=== PATIENT | male | born 1950 | race Caucasian/White ===

== ENCOUNTER → 2017-01-24 | Outpatient (CLI) | payer MEDICARE, MEDICAID ==
[~2017-01-24] MED LIST: ACYCLOVIR PO; AMITRIPTYLINE H50 M1 PO; ASPIR-LOW81 MG PO; ASPIRIN 32325 MG/TAB PO; ELAVIL50 MG PO; FLONASE NASAL S16 GM NS; HCTZ PO; KALETRA PO; LIPITOR 10MG10 MG PO; LISINOPRIL PO; TRILIPIX45 MG PO; TRUVADA PO; VYTORIN PO; ZOVIRAX 200MG200 MG PO
== END ==
LOC: COL.RAD 09:45
DX: M50.31 Other cervical disc degeneration, high cervical region (principal); M25.78 Osteophyte, vertebrae; M79.601 Pain in right arm; M54.12 Radiculopathy, cervical region

== ENCOUNTER → 2017-01-26 | Outpatient (CLI) | payer MEDICARE | LOC: COL.RAD 10:14 | DX: K76.0 Fatty (change of) liver, not elsewhere classified (principal); B19.10 Unspecified viral hepatitis B without hepatic coma; K74.69 Other cirrhosis of liver ==

== ENCOUNTER → 2017-02-01 | Outpatient (CLI) | payer MEDICARE | LOC: COL.RAD 08:29 | DX: J98.6 Disorders of diaphragm (principal); R06.02 Shortness of breath ==

== ENCOUNTER → 2019-10-11 | Outpatient (CLI) | payer MEDICARE ==
[2019-10-11 11:21] LABS: CREATININE, serum 1.03 (0.66-1.25)
== END ==
LOC: COL.LAB 09:30
PROVIDERS: Internal Medicine
DX: Z01.812 Encounter for preprocedural laboratory examination (principal); M48.02 Spinal stenosis, cervical region

== ENCOUNTER → 2019-10-14 | Outpatient (CLI) | payer MEDICARE | LOC: COL.RAD 10:21 | DX: Z01.812 Encounter for preprocedural laboratory examination (principal); M48.02 Spinal stenosis, cervical region; M46.92 Unspecified inflammatory spondylopathy, cervical region; I65.23 Occlusion and stenosis of bilateral carotid arteries | CPT/HCPCS: Q9967 ==

== ENCOUNTER 2019-11-01 15:54 | Inpatient (IN) | payer MEDICARE ==
[~2019-11-01] VITALS: Ht 182.9 cm; Wt 124.0 kg
[~2019-11-01 15:54] MED LIST changes: -AMITRIPTYLINE H50 M1 PO; -ASPIRIN 32325 MG/TAB PO; +ASPIRIN 81M81 MG/TA2 PO; +ELAVIL100 MG PO; -ZOVIRAX 200MG200 MG PO; +ZOVIRAX400 MG PO
[2019-11-01 17:41] VITALS: BP 121/64; PULSE 131; TEMP 98
--- NOTE | 2019-11-01 17:43 | NUR ---
Report from Gilda at . Pt arrived via wheelchair by transport service, being settled into room by ZANDER Fish. Nurse introduced self to pt, pt is A&O, pleasant, NAD, has aspen collar to cervical spine intact, shoes in place, to chair.
[2019-11-01] MEDS ORDERED: NORCO 325 MG-51 TAB PO (17:53)
[2019-11-01] MEDS ORDERED: [UNRECOGNIZED DRUG - OTHER] MM (17:54)
[2019-11-01] MEDS ORDERED: ZANAFLEX2 MG PO (17:55)
[2019-11-01] MEDS ORDERED: BIKTARVY 50-201 EACH PO (17:59)
[2019-11-01] MEDS ORDERED: THE MEDICINE S200 M2 PO (17:59)
[2019-11-01] MEDS ORDERED: EPA FISH OIL1 SGL PO (18:00)
[2019-11-01] MEDS ORDERED: TRICOR 48MG48 MG PO (18:00)
[2019-11-01] MEDS ORDERED: FLONASE NASAL S16 GM NS (18:01)
[2019-11-01] MEDS ORDERED: GLUCOSAMINE & C1 CA2 PO (18:01)
[2019-11-01] MEDS ORDERED: NIZORAL SHAMPO120 M1 TP (18:02)
[2019-11-01] MEDS ORDERED: LYRICA 150MG C150 MG PO (18:03)
[2019-11-01] MEDS ORDERED: PRINIVIL40 MG PO (18:03)
[2019-11-01] MEDS ORDERED: PRILOSEC 20MG20 MG PO (18:04)
[2019-11-01] MEDS ORDERED: MEN'S ONE DAIL1 EACH PO (18:04)
[2019-11-01] MEDS ORDERED: UNIPHYL 400MG400 MG PO (18:05)
[2019-11-01] MEDS ORDERED: TRIAMCINOLONE A15 G3 TP (18:06)
[2019-11-01] MEDS ORDERED: CEPACOL SORE TH1 LO8 MM ×2 (18:30→19:37)
[2019-11-01] MEDS ORDERED: VITAMINE200 PO (18:31)
[2019-11-01] MEDS ORDERED: AMBIEN 5MG TABLE5 MG PO (18:32)
[2019-11-01] MEDS ORDERED: ERGOCALCIFER50000 IU PO (19:41)
--- NOTE | 2019-11-01 19:47 | NUR ---
Bedside report to VERONIKA Nascimento. Pt in chair with call lt in reach, aspen collar in place. Pt requests soft diet d/t difficulty with sore throat, changed order, ST notified, will see Monday.
--- NOTE | 2019-11-01 21:30 | NUR ---
Pt. sitting up in bed at this time. Pt. is A&OX3, assessment complete. Incision to rt. neck is well approximated, no dressing. Pt. wearing neck brace. Pt. denies pain or other needs, call light within reach.
[2019-11-02 05:28] VITALS: BP 109/58; PULSE 118; TEMP 97.8
[2019-11-02 08:00] VITALS: BP 115/59
--- NOTE | 2019-11-02 10:04 | NUR ---
Patient working with PT at this time.
--- NOTE | 2019-11-02 10:45 | NUR ---
Patient was in Physical Therapy.
[2019-11-02 16:35] VITALS: BP 114/57; PULSE 121; TEMP 98.9
--- NOTE | 2019-11-02 17:31 | NUR ---
This nurse assisted patient with using his electric razor this afternoon. His chin was getting irritated with his hair rubbing against his neck brace. Patient currently eating supper in his recliner, call light in reach and alarm is on. Denied pain at this time. He did have a headache earlier, but that has now subsided. Patient denied questions at this time.
--- NOTE | 2019-11-02 18:34 | NUR ---
Patient given a warm wash cloth to clean up prior to going to bed. He was a one assist with transferring to the bathroom with walker and gait belt. He was able to pull pants up and down and wipe self independently. Patient uses call light appropriatly. Reported off to night nurse.
--- NOTE | 2019-11-02 20:00 | NUR ---
Pt. sitting up in chair at this time. Pt. is A&OX3, assessment complete. Incision to rt. neck, well approximated. Pt. reports mild pain at a 4 on pain scale, will give pain meds per orders. Pt. assisted into bed at this time with walker and standby assist. Pt. denies further needs, call light within reach.
[2019-11-03 05:40] VITALS: BP 127/59; PULSE 104; TEMP 97.6
--- NOTE | 2019-11-03 05:42 | NUR ---
Pt. slept well through the night. Pt. remains A&OX3. Pt. denies pain or other needs, call light within reach.
--- NOTE | 2019-11-03 09:06 | NUR ---
Patient resting in recliner at this time, call light in reach and alarm is set. Patient was set up with eating, needing a straw to be able to drink his fluids while wearing his aspen collar. Denied pain at this time only aching that is tolerable. Reported sleeping very well last night. Requested Miralax this morning and was taken with his orance juice. Ate all his breakfast this morning and took his pills one at a time with water.
--- NOTE | 2019-11-03 12:40 | NUR ---
Patient watching television while sitting in recliner in his underwear. He did not want to get dressed this morning, waiting to take a shower this afternoon. Denies pain at this time, call light is within reach and his slip proof socks are on. Denies pain.
--- NOTE | 2019-11-03 14:51 | NUR ---
Patient was seen by dietary this afternoon. See new orders for snacks two times a day and specific breakfast per patient request. Saray notified kitchen of these new orders.
--- NOTE | 2019-11-03 14:53 | NUR ---
Patient took a shower this afternoon and was able to clean himself independently after he was set up by staff. Shaila neck collar was used when in the shower. He is currently resting in bed feet elevated and ice pack on right foot due to swelling and discomfort. Will continue to monitor.
[2019-11-03 16:19] VITALS: BP 148/75; PULSE 109; TEMP 97.7
--- NOTE | 2019-11-03 20:00 | NUR ---
PATIENT RESTING IN BED, WATCHING TV DURING SHIFT CHANGE REPORT FROM DAY SHIFT NURSE. REQUESTS PAIN MED WITH HS MEDS. BED ALARM ON.
--- NOTE | 2019-11-04 03:43 | NUR ---
RESTS WITH EYES CLOSED, HAS CPAP ON, DOES NOT AROUSE WHEN ROOM ENTERED. BREATHING NONLABORED AND EVEN. BED ALARM ON.
[2019-11-04 05:28] VITALS: BP 129/59; PULSE 83; TEMP 97.7
--- NOTE | 2019-11-04 07:41 | NUR ---
Bedside report nury Mcnair RN. Pt sitting up in bed with aspen collar in place, anterior incision CDI, glued. Pt adenike mech soft diet but clears throat freq, sent note to dietary that pt could use more moisture for foods. Report that pt takes large pills with applesauce and hot water. Pain to throat and left shoulder, declined norco at this time, edu about requesting pain meds as they are PRN. Asked pt to call if sig o visits so pt's home meds may be sent home.
[2019-11-04 08:38] LABS: BASO # 0.1 (0.0-0.2); BASO % 0.7 % (0.0-2.0); EOS # 0.2 (0.0-0.7); EOS % 3.3 % (0-4.0); GRAN % 54.2 % (42.2-75.2); HEMATOCRIT 43.4 % (42.0-52.0); HEMOGLOBIN 14.3 g/dl (13.5-18.0); LYMPH # 2.2 (1.2-3.4); LYMPH % 29.9 % (20.0-51.0); MEAN CELL VOLUME 96 fl (80.0-100.0); MEAN CORPUSCULAR HEMOGLOBIN 32 pg (27.0-31.0); MEAN CORPUSCULAR HGB CONC 33 g/dl (33.0-37.0); MEAN PLATELET VOLUME 12.4 fl (7.4-10.4); MONO # 0.8 (0.1-0.6); MONO % 11.1 % (1.7-9.3); PLATELET COUNT 148 K/mm3 (130-400); RED BLOOD COUNT 4.52 M/mm3 (4.20-5.60); REDCELL DISTRIBUTION WIDTH-CV 13.6 % (11.5-14.5)
[2019-11-04 09:12] LABS: CALCIUM 9.9 mg/dL (8.4-10.2); CREATININE, serum 0.85 (0.66-1.25); MAGNESIUM 1.9 mg/dL (1.6-2.3); POTASSIUM 4.9 mmol/L (3.4-5.0)
--- NOTE | 2019-11-04 15:01 | NUR ---
ANDREW met with the patient to complete initial intake, as the patient is new to [facility]. The patient lives in [place] with his partner of thirty years, Hoang Cedeño (ph#[phone]). He reports independence with ADLs prior to hospitalization and has two walkers and a CPAP from [facility]. The patient's PCP is Dr. Kasey Vasquez and he receives his medications at [facility]. He reports no difficulties obtaining his meds. The patient does not have advanced directives completed, but states that he is planning on getting them completed soon. He states that he would want to designate his partner, Hoang. A family meeting with his partner was scheduled for tomorrow at 1300. ANDREW informed [facility] Director and will continue to follow.
[2019-11-04 16:06] VITALS: BP 137/68; PULSE 122; TEMP 98.3
--- NOTE | 2019-11-04 16:12 | NUR ---
Pt in chair watching tv, aspen collar in place, rubbing on chin, applied mepilex to chin but pt's stubble makes it not stick well. Glasses in place, call lt in reach.
--- NOTE | 2019-11-04 19:29 | NUR ---
Bedside report to VERONIKA Mcnair. Pt in chair with aspen collar in place, applied new mepilex 4x4 cut in half to chin d/t rubbing, skin intact. Chair alarm on, call lt in reach.
--- NOTE | 2019-11-04 20:00 | NUR ---
PATIENT UP IN CHAIR DURING SHIFT CHANGE REPORT FROM DAY NURSE, WITH NO COMPLAINTS REPORTS CURRENTLY. CHAIR ALARM ON.
--- NOTE | 2019-11-05 01:03 | NUR ---
RESTING WITH EYES CLOSED, DOES NOT AROUSE WHEN ROOM ENTERED. WEARING CPAP. BREATHING NONLABORED AND EVEN. BED ALARM ON.
[2019-11-05 05:28] VITALS: BP 131/62; PULSE 73; TEMP 97.7
--- NOTE | 2019-11-05 05:44 | NUR ---
BED ALARM ON. PATIENT RESTING WITH NO FURTHER NEEDS REPORTED CURRENTLY.
--- NOTE | 2019-11-05 06:58 | NUR ---
Bed alarm on, patient resting quietly in bed during shift change report given to day nurse.
--- NOTE | 2019-11-05 07:00 | NUR ---
sitting up in bed eating breakfast, bedside shift report received from VERONIKA Olivo
--- NOTE | 2019-11-05 09:00 | NUR ---
remains sitting up in bed with aspen collar on, had breakfast and tolerated well, full assessment completed, see interventions for further info, incision to right side of neck open to air and CD&I with edges well approsimated, denies pain or needs
--- NOTE | 2019-11-05 09:09 | NUR ---
Initial visit; Patient thanked [employer] Director for looking in on him, visiting and offering God's blessings.
--- NOTE | 2019-11-05 11:51 | NUR ---
returned from group therapy and now sitting up in chair having lunch
--- NOTE | 2019-11-05 13:00 | NUR ---
remains up in chair visiting with a friend, c/o pain to left shoulder and medicated with tylenol 650mg
--- NOTE | 2019-11-05 13:16 | NUR ---
SW attended a family meeting with the patient and his partner, Hoang. Also present was IPR Director, PT, & OT. IPR Director, Andria, started by the explaining the purpose of the meeting. PT/OT then discussed the patient's progress. The patient reports that he really has no concerns about returning home and is hopeful to discharge by Monday. All questions were answered. SW to continue to follow.
--- NOTE | 2019-11-05 14:15 | NUR ---
physical therapy in to work with patient
[2019-11-05 16:12] VITALS: BP 138/76; PULSE 106; TEMP 98
--- NOTE | 2019-11-05 19:30 | NUR ---
Patient returned from the bathroom with GEOPHYSICAL OBSERVER and rests back in bed. Snack of icecream and ensure given. Alert and oriented x 4. Pleasant and talkative. HS meds all reviewed and given. Denies need for pain med at this time.
--- NOTE | 2019-11-05 22:45 | NUR ---
Patient rests in bed with eyes closed. CPAP on.
--- NOTE | 2019-11-06 03:00 | NUR ---
Patient continues resting in bed with CPAP on.
[2019-11-06 03:53] VITALS: BP 117/58; PULSE 73; TEMP 97.5
--- NOTE | 2019-11-06 05:46 | NUR ---
AWAKENED FOR AM MEDS. DENIES PAIN OR NEEDS.
--- NOTE | 2019-11-06 08:05 | NUR ---
Report from VERONIKA Dacosta. Pt in bed with alarm on, call lt in reach, aspen collar in place. States he wore SCDs at noc, no O2, amb with PT with walker. Takes morning pills with thin liquids, would like to adv to gen diet.
--- NOTE | 2019-11-06 12:31 | NUR ---
Pt adenike mod I in rm with walker, aspen collar in place
--- NOTE | 2019-11-06 15:30 | NUR ---
Faxed [facility] PT pt's face sheet & H&P, received "OK" fax receipt
--- NOTE | 2019-11-06 15:39 | NUR ---
ANDREW met with the patient to present and review the IPR Team Conference Note. ANDREW discussed the team's recommendation of a discharge for this Monday, 11/08, with outpatient PT and the need for a showerchair. The patient is in agreeance to this plan. He states that he would prefer to receive outpatient PT at [facility] and would prefer the therapist, Glenis, if she is still there. The patient reports that he also plans to order the showerchair and a handheld showerhead through [employer]. The patient had no other questions or concerns for ANDREW at this time. SW to contact [facility] to set up the appointment and will continue to follow.
[2019-11-06 16:29] VITALS: BP 130/57; PULSE 113; TEMP 98.1
--- NOTE | 2019-11-06 19:24 | NUR ---
Bedside report to VERONIKA Dacosta. Pt in chair, mod I in rm w/ walker, aspen collar in place. Have stressed to pt to call if he needs anything, edu about safety. Provided note with pt's appts and forms for [facility].
--- NOTE | 2019-11-06 20:30 | NUR ---
Patient sits up in recliner. Reports minimal pain left shoulder. Requests tylenol with HS meds and all reviewed and given. Declines snack at this time. Is mod I in room and call light and walker in reach.
--- NOTE | 2019-11-07 02:02 | NUR ---
Patient rests with eyes closed. Respirations with ease.
[2019-11-07 05:18] VITALS: BP 143/69; PULSE 88; TEMP 97.4
--- NOTE | 2019-11-07 06:02 | NUR ---
Patient woke up for am med. Denies needs.
--- NOTE | 2019-11-07 08:10 | NUR ---
Patient resting in recliner at this time call light in reach and independent in his room. Will continue to monitor.
--- NOTE | 2019-11-07 11:10 | NUR ---
Changed linens on bed. Patient is currently working with OT at this time in his room. Denies pain at this time.
--- NOTE | 2019-11-07 14:49 | NUR ---
Patient resting in recliner at this time. He is independent in his room and just completed his session with OT. Denies pain at this time.
--- NOTE | 2019-11-07 14:54 | NUR ---
The patient was secured an appointment with [facility] for outpatient PT on , 11/14, at 1000. SW to continue to follow.
[2019-11-07 18:33] VITALS: BP 123/59; PULSE 112; TEMP 98.2
--- NOTE | 2019-11-07 20:00 | NUR ---
PT CHEERFUL AND TALKATIVE. WEARING ASPEN COLLAR AT ALL TIMES. ANTERIOR NECK INCISION DONNIE AND HEALING WELL.
[2019-11-08 03:02] VITALS: BP 118/59; PULSE 88; TEMP 97.5
--- NOTE | 2019-11-08 08:00 | NUR ---
Patient resting in bed following eating his breakfast and is independent in his room with his walker. Patient denies pain this morning. Reports that his partner will be picking him up after 1 PM today.
[2019-11-08] MEDS ORDERED: TYLENOL 325MG325 MG PO (10:52)
--- NOTE | 2019-11-08 10:56 | NUR ---
The patient is to discharge back home with his partner today, 11/08, with outpatient PT at [facility]. SW met with the patient to present and explain the IM form. The patient verbalized understanding, signed, and he was provided a copy. The patient had no other questions or concerns for discharge and states that he is ready to get home. No additional needs at this time.
--- NOTE | 2019-11-08 12:00 | NUR ---
Patient ate all his lunch today. He is independent on all his cares. Denies any questions at this time. Will continue to monitor.
--- NOTE | 2019-11-08 14:00 | NUR ---
Patient Health Summary, Discharge Summary and Home Meds printed and reviewed with patient. Stressed importance of follow up appointments. Belongings gathered by Aye including his wheeled walker, glasses, aspen collar/shower collar, cell phone, configuration management specialist, CPAP machine, Ring-cut off in bag, all medications that he had brought with him and his AFO with tennis shoes. Patient was transported via walker by Aye and seatbelted for ride home. Patient denied questions.
== END 2019-11-08 14:00 | disposition home or self-care (01) | DRG 948 ==
PROVIDERS: ADMIT Internal Medicine
DX: R53.81 Other malaise (principal); G99.2 Myelopathy in diseases classified elsewhere; M48.02 Spinal stenosis, cervical region; M54.12 Radiculopathy, cervical region; G47.33 Obstructive sleep apnea (adult) (pediatric); I10 Essential (primary) hypertension; E78.5 Hyperlipidemia, unspecified; K21.9 Gastro-esophageal reflux disease without esophagitis; E66.9 Obesity, unspecified; M79.674 Pain in right toe(s); Z21 Asymptomatic human immunodeficiency virus [HIV] infection status; Z79.82 Long term (current) use of aspirin; Z98.1 Arthrodesis status; Z68.37 Body mass index [BMI] 37.0-37.9, adult; Z87.891 Personal history of nicotine dependence
CPT/HCPCS: 99222-AI; 99232-AI; 99239; J1644; J1650; J7512

== ENCOUNTER → 2019-12-03 | Outpatient (CLI) | payer MEDICARE ==
[~2019-12-03] MED LIST changes: +AMBIEN 5MG TABLE5 MG PO; +BIKTARVY 50-201 EACH PO; +CEPACOL SORE TH1 LO8 MM; +EPA FISH OIL1 SGL PO; +ERGOCALCIFER50000 IU PO; +GLUCOSAMINE & C1 CA2 PO; +LYRICA 150MG C150 MG PO; +MEN'S ONE DAIL1 EACH PO; +NIZORAL SHAMPO120 M1 TP; +NORCO 325 MG-51 TAB PO; +PRILOSEC 20MG20 MG PO; +PRINIVIL40 MG PO; +THE MEDICINE S200 M2 PO; +TRIAMCINOLONE A15 G3 TP; +TRICOR 48MG48 MG PO; +TYLENOL 325MG325 MG PO; +UNIPHYL 400MG400 MG PO; +VITAMINE200 PO; +ZANAFLEX2 MG PO; +[UNRECOGNIZED DRUG - OTHER] MM
== END ==
LOC: COL.RAD 10:39
DX: M48.02 Spinal stenosis, cervical region (principal); R26.9 Unspecified abnormalities of gait and mobility; Z98.1 Arthrodesis status

== ENCOUNTER → 2020-01-29 | Outpatient (CLI) | payer MEDICARE | LOC: COL.RAD 09:37 | DX: M48.02 Spinal stenosis, cervical region (principal); G95.20 Unspecified cord compression; M47.12 Other spondylosis with myelopathy, cervical region ==

== ENCOUNTER → 2020-05-30 | Outpatient (CLI) | payer MEDICARE | LOC: COL.RAD 04-30 09:40 | DX: M47.12 Other spondylosis with myelopathy, cervical region (principal); G95.20 Unspecified cord compression; Z98.1 Arthrodesis status ==

== ENCOUNTER 2021-09-27 07:04 | Day surgery (SDC) | payer MEDICARE ==
[~2021-09-27] VITALS: Ht 185.4 cm; Wt 128.6 kg
[2021-09-27] VITALS (11 sets, daily range): BP systolic 95–135; BP diastolic 35–96; PULSE 72–80; TEMP 98.2
[2021-09-27] MEDS ORDERED: BIKTARVY 50-201 EACH PO (07:38)
[2021-09-27] MEDS ORDERED: ZYRTEC5 MG PO (07:39)
[2021-09-27 08:22] LABS: HEMATOCRIT 43.5 % (42.0-52.0); HEMOGLOBIN 13.9 g/dl (13.5-18.0); MEAN CELL VOLUME 99 fl (80.0-100.0); MEAN CORPUSCULAR HEMOGLOBIN 32 pg (27.0-31.0); MEAN CORPUSCULAR HGB CONC 32 g/dl (33.0-37.0); MEAN PLATELET VOLUME 11.4 fl (7.4-10.4); PLATELET COUNT 179 K/mm3 (130-400); RED BLOOD COUNT 4.38 M/mm3 (4.20-5.60); REDCELL DISTRIBUTION WIDTH-CV 14.6 % (11.5-14.5)
[2021-09-27 08:29] LABS: INR 1.1 (0.8-3.0)
[2021-09-27 08:32] LABS: PARTIAL THROMBOPLASTIN TIME 27.9 SECONDS (26.0-37.0)
[2021-09-27 08:33] LABS: CALCIUM 10.9 mg/dL (8.4-10.2); CREATININE, serum 1.29 mg/dL (0.72-1.25)
[2021-09-27] MEDS ORDERED: TIAZAC180 MG PO (08:52)
[2021-09-27] MEDS ORDERED: NORCO 325 MG-51 TAB PO (08:54)
[2021-09-27] MEDS ORDERED: LASIX 80MG TABL80 MG PO (08:54)
--- NOTE | 2021-09-27 09:22 | NUR ---
SEE MERGE FOR ALL MEDICATIONS ADMINISTRATION TIMES/DOSAGES AND INTRA/POST SEDATION ASSESSMENT.
--- NOTE | 2021-09-27 13:30 | NUR ---
DC instructions reviewed with pt and friend, both express understanding. Dressing to rt groin venous access site remains clean dry and intact after pt gets out of bed to use urinal. Air was removed from TR band in 2 ml increments with no bleeding or issues. Rt radial puncture site dressed with folded 2x2 and bandaid. INT DC'd with catheter intact. Pt assisted out to friend's car by wheelchair with belongings.
== END 2021-09-27 13:30 | disposition home or self-care (01) ==
LOC: COL.CAR 07:04
PROVIDERS: Internal Medicine Cardiovascular Disease
DX: I27.20 Pulmonary hypertension, unspecified (principal); I25.10 Atherosclerotic heart disease of native coronary artery without angina pectoris; I11.0 Hypertensive heart disease with heart failure; I50.33 Acute on chronic diastolic (congestive) heart failure; G47.33 Obstructive sleep apnea (adult) (pediatric); I34.0 Nonrheumatic mitral (valve) insufficiency; K21.9 Gastro-esophageal reflux disease without esophagitis; E66.9 Obesity, unspecified; E78.00 Pure hypercholesterolemia, unspecified; G62.9 Polyneuropathy, unspecified; E78.2 Mixed hyperlipidemia; J30.2 Other seasonal allergic rhinitis; Z68.37 Body mass index [BMI] 37.0-37.9, adult; Z87.891 Personal history of nicotine dependence; Z79.82 Long term (current) use of aspirin; Z79.899 Other long term (current) drug therapy; B20 Human immunodeficiency virus [HIV] disease
CPT/HCPCS: C1894; J1644; J3010; Q9967